=== PATIENT | female | born 1975 | race Native Hawaiian/Other Pacific Islander ===

== ENCOUNTER 2017-05-07 20:23 | Emergency (ER) | payer OTHER ==
[~2017-05-07] VITALS: Ht 170.2 cm; Wt 86.4 kg
[2017-05-07 20:34] VITALS: BP 161/104; PULSE 112; RESP 16; O2SAT 93
--- NOTE | 2017-05-07 20:51 | ED.REPORT ---
HPI-Head Prob / Injury Date of Service May 07, 2017 ED Provider: Dr. Grissom Pt is a healthy 41 year old female with a hx of DM who presents to the ED via EMS immediately following a head injury. She reports that she was sitting on the edge of a trailer when she fell off and hit her head on a wooden bench. She reports a headache and neck pain. She denies any blurred vision, loss of consciousness or vomiting. Nursing Notes Stated Complaint: GROUND LEVEL FALL Chief Complaint: Head, Face, Neck Trauma Nursing Notes Reviewed: Yes Allergies: Coded Allergies: morphine (Verified Allergy, Unknown, Rash,Itching,, 05/07/17) Scheduled Insulin Aspart (NovoLOG U100 Insulin Vial) 100 U/Ml U 1 UNIT SUBQ sliding scale Insulin Glargine (Lantus U100 Insulin Vial) 100 Unit/Ml Vial 50 UNIT SUBQ QAM Insulin Glargine (Lantus U100 Insulin Vial) 100 Unit/Ml Vial 60 UNIT SUBQ HS Lisinopril (Lisinopril) 20 Mg Tablet 20 MG PO DAILY General Time Seen by Provider: 20:55 Chief Complaint Blunt head trauma Hx Obtained From: Patient Arrived By: Ambulance Onset Occurred: Just prior to arrival Symptom Duration: Since onset Location: : Neck Quality: Painful Severity: Current: Moderate Severity: Maximum: Moderate Similar Sx Previous: Yes Past Medical History Past Medical History DM Review of Systems Constitutional: Denies: Chills, Fever, Malaise GI: Denies: Abdominal pain, Bloody/tarry stool, Diarrhea, Nausea, Vomiting Musculoskeletal: Reports: Back pain, Neck pain, Denies: Extremity pain Skin: Denies Diaphoresis, Denies Swelling Neurologic: Reports: Headache, Denies: Change LOC, Dizziness, Seizure, Syncope Complete sys rev & neg: except as marked. Physical Exam Initial Vital Signs Vital Signs (First) Date Time Temp Pulse Resp B/P Pulse Ox O2 Delivery O2 Flow Rate FiO2 05/07/17 20:34 36.6 112 16 161/104 93 Room Air Initial VS: Reviewed Respiratory: Breath sounds normal, Clear to auscultation, No respiratory distress Cardiovascular: Regular rate & rhythm, Heart sounds normal, Intact distal pulses Abdomen / GI: Soft, Non-tender, No guarding, No rebound, No distention Skin: Warm, Dry, No cyanosis General/Constitutional: Awake, Alert, Cooperative Appearance / Presentation: Positive: Uncomfortable Head / Eyes: Atraumatic, Normocephalic, PERRL ENT: Atraumatic, Airway patent, Mucous membranes moist, Pharynx NL Neck: Atraumatic, Supple Trauma - Neck Specific: Positive: Immobilized - C Collar Tender c-spine Tender l spine Neurologic: Oriented X3, Speech NL, No motor deficits, No sensory deficits, CN II - XII intact, Cerebellar NL Interpretation & Diagnostics Lab Results Interpretation Result Diagram: 05/07/17 2305 Test 05/07/17 23:05 Sodium Level 127mEq/L (134-144) Potassium Level 4.0mEq/L (3.5-5.2) Chloride Level 87mEq/L (97-108) Carbon Dioxide Level 21mmol/L (18-29) Blood Urea Nitrogen 24mg/dL (6-24) Creatinine 1.52mg/dL (0.57-1.00) Estimat Glomerular Filtration Rate 54mL/min (>59) Glucose Level 693mg/dL (60-99) Calcium Level 8.9mg/dL (8.5-10.1) Total Bilirubin 0.3mg/dL (0.0-1.2) Aspartate Amino Transf (AST/SGOT) 14U/L (0-50) Alanine Aminotransferase (ALT/SGPT) 15U/L (0-32) Alkaline Phosphatase 123U/L (25-150) Total Protein 7.3g/dL (6.4-8.4) Albumin 3.4g/dL (3.4-5.0) X-Ray Interpretation Xray Interpretation: IMPRESSION: No fractures. Mild degenerative disc disease. Dictated by: Samuel Boone M.D. on 05/07/2017 at 21:52 Study Performed: L spine Interpretation / Wet Read by: Interpret - Radiologist CT Head Interpretation IMPRESSION: No acute intracranial abnormality. No skull fracture. Dictated by: Samuel Boone M.D. on 05/07/2017 at 21:40 Interpretation / Wet Read by: Interpret - Radiologist CT C-Spine Interpretation IMPRESSION: No fracture or dislocation. Dictated by: Samuel Boone M.D. on 05/07/2017 at 21:42 Interpretation / Wet Read by: Interpret - Radiologist Re-Eval/Medical Decision Med Decision/Clinical Course Type I diabetic involved in traumatic injury. She is clear from a trauma standpoint. Blood sugar was 700 and she was given her evening dose of Lantus and a dose of Humalog. Blood sugar came down to about 350 and she felt well. She does not have a provider and she is out of insulin. I will prescribe her a month's worth of her Lantus as well as her NovoLog. Referred to primary care for close outpatient follow-up. At discharge is awake alert and oriented 4. Routine opiate and diabetic warnings were given. Source of Hx: Old records Counseled Regarding: Diagnosis, Lab results, Need for follow-up, When/why to return to ED Discharge & Departure Primary Impression: Neck strain Encounter type: initial encounter Qualified Code: S16.1XXA - Strain of muscle, fascia and tendon at neck level, initial encounter Additional Impressions: Head injury Encounter type: initial encounter Qualified Code: S09.90XA - Unspecified injury of head, initial encounter Hyperglycemia due to type 1 diabetes mellitus Disposition: Home All VS Reviewed: Yes Condition: Stable Patient Instructions: Acute Neck Pain (ED), Concussion (ED), Diabetic Hyperglycemia (ED) Additional Instructions: The CT scans were essentially normal. No signs of acute traumatic injury. Your blood sugar was nearly 700. This came down nicely with your evening dose of Lantus and a dose of iv insulin. Check your blood sugar every 4 hours. Follow your diabetic diet. Fill the prescriptions for Lantus and Novolog tomorrow. Following your sliding scale. Set up a follow-up with referral clinics. You should be seen this week. He may take 1-2 [place] every 6 hours as needed for severe pain. Do not drive or drink alcohol consumption acetaminophen tonight or whilel taking the [place]. Return if any problems or any new or worrisome symptoms. YOu should eat something tonight before bed. Check her blood sugar first thing in the morning. Referrals: Edi Araiza MD Attestation Portions of this note were transcribed by Ginger Calvillo. I, Dr. Grissom personally performed the history, physical exam and medical decision-making; I reviewed and confirmed the accuracy of the information in the transcribed note. Signed by: Vasiliy Ward, 05/07/2017 [id number] copies to: Edi Araiza MD, Todd P DO May 07, 2017 20:51 CARMEN CALVILLO May 07, 2017 20:56
[2017-05-07] MEDS: HYDROmorphone 0.5 mg/0.5 mL iSecure Syringe IVPUSH PRN ×2 (21:15→22:48)
--- NOTE | 2017-05-07 21:43 | DRSVH ---
PROCEDURE: CT BRAIN WITHOUT CONTRAST ([id number]) INDICATIONS: FALL, STRUCK BACK OF NECK TECHNIQUE: Noncontrast 4.5 mm thick angled axial sections acquired from the foramen magnum to the vertex, with c oronal reformats. COMPARISON: None. FINDINGS: Image quality: Excellent. CSF spaces: Basal cisterns are patent. No extra-axial fluid collections. Ventricles are normal in size and shape. Brain: No midline shift. No intracranial masses or hemorrhage. Campbell-white matter interface is norm al. Skull and face: Calvarium and visualized facial bones are intact, without suspicious lesions. Sinuses: Visualized sinuses and mastoids are clear. IMPRESSION: No acute intracranial abnormality. No skull fracture. Dictated by: Samuel Boone M.D. on 05/07/2017 at 21:40 Approved by: Samuel Boone M.D. on 05/07/2017 at 21:42
--- NOTE | 2017-05-07 21:46 | DRSVH ---
PROCEDURE: CT CERVICAL SPINE WITHOUT CONTRAST ([id number]) INDICATIONS: FALL, STRUCK BACK OF NECK TECHNIQUE: Noncontrast 3 mm thick sections acquired from the skull base to the T4 level. Sagittal and coronal r eformats were then constructed. For radiation dose reduction, the following was used: automated exp osure control, adjustment of mA and/or kV according to patient size. COMPARISON: [facility], CT, CT BRAIN WO CON, 05/07/2017, 20:44. FINDINGS: Image quality: Excellent. Bones: No fractures or dislocations. Visualized superior ribs are intact. Soft tissues: Prevertebral soft tissues are normal in thickness. No paravertebral hematomas. No ap ical pneumothoraces. Bilateral vertebral artery calcification consistent with atherosclerosis. IMPRESSION: No fracture or dislocation. Dictated by: Samuel Boone M.D. on 05/07/2017 at 21:42 Approved by: Samuel Boone M.D. on 05/07/2017 at 21:45
--- NOTE | 2017-05-07 21:55 | DRSVH ---
PROCEDURE: X-RAY LUMBAR SPINE, 2 OR 3 VIEW INDICATIONS: fall, back pain TECHNIQUE: 3 views of the lumbar spine were acquired. COMPARISON: None. FINDINGS: Bones: 5 [id number] vertebrae are present. There is normal bony alignment. No vertebral body c ompression fractures. No suspicious bony lesions. There is mild degenerative disc disease at L3-L4 and L4-L5 with mild loss of disc height and anterior spurring. Soft tissues: Overlying bowel gas pattern is normal. No suspicious soft tissue calcifications. IMPRESSION: No fractures. Mild degenerative disc disease. Dictated by: Samuel Boone M.D. on 05/07/2017 at 21:52 Approved by: Samuel Bonoe M.D. on 05/07/2017 at 21:54
[2017-05-07] MEDS ORDERED: INSU100V7 SUBQ ×2 (22:41→22:43)
[2017-05-07] MEDS ORDERED: INSU100C8 SUBQ (22:43)
[2017-05-07] MEDS ORDERED: LISI-567 PO (22:43)
[2017-05-07 22:47] VITALS: BP 134/90; PULSE 108; RESP 20; O2SAT 100
[2017-05-08] MEDS ORDERED: Insulin GLARgine 100 Unit/mL Syringe SUBQ ONE
[2017-05-08] MEDS ORDERED: Insulin Human REGular 300 Unit/3 mL Inj IV SCH
[2017-05-08] MEDS ORDERED: Insulin Human REGular-Omnicell 100 Unit/mL ONE (00:21)
[2017-05-08 01:54] VITALS: BP 106/69; PULSE 107; RESP 16; O2SAT 99
== END 2017-05-08 01:46 | disposition home or self-care (01) ==
LOC: EDBD 20:23 → SED 20:23
DX: S16.1XXA Strain of muscle, fascia and tendon at neck level, initial encounter (principal); S09.8XXA Other specified injuries of head, initial encounter; W01.198A Fall on same level from slipping, tripping and stumbling with subsequent striking against other object, initial encounter; Y93.89 Activity, other specified; Y92.009 Unspecified place in unspecified non-institutional (private) residence as the place of occurrence of the external cause; Y99.8 Other external cause status; E10.65 Type 1 diabetes mellitus with hyperglycemia; Z79.4 Long term (current) use of insulin; Z88.5 Allergy status to narcotic agent
CPT/HCPCS: 36415; 70450; 72100; 72125; 80053; 82948; 96372; 96374; 96375; 96376; 99285; J1170; J1815

== ENCOUNTER 2017-05-12 06:27 | Emergency (ER) | payer OTHER ==
[2017-05-12] VITALS (12 sets, daily range): BP systolic 117–184; BP diastolic 71–132; PULSE 101–120; RESP 14–22; O2SAT 96–100
[~2017-05-12] VITALS: Ht 170.2 cm; Wt 90.0 kg
[~2017-05-12 06:27] MED LIST: INSU100C8 SUBQ; INSU100V7 SUBQ; LISI-567 PO
[2017-05-12] MEDS ORDERED: 0.9% Sodium Chloride 1,000 ML IV ONE ×3 (06:42→10:14)
--- NOTE | 2017-05-12 06:44 | ED.REPORT ---
HPI-Abd Pain F 40 and Over Date of Service May 12, 2017 ED Provider: Felice Rahman DO Pt is a 41 year old female with a history of hypertension and DMII, who presents to the ED complaining of abdominal pain onset three days ago. Pt c/o associated nausea, vomiting, and decreased appetite, but denies diarrhea, hematochezia or hematemesis. The pt also reports that her blood sugar is elevated at approximately 700, but admits to not taking her medications this morning. History is initially difficult to obtain because patient is so uncomfortable and retching. Nursing Notes Stated Complaint: ABDOMINAL PAIN,VOMITING Chief Complaint: Female Abdominal Pain Nursing Notes Reviewed: Yes Allergies: Coded Allergies: morphine (Verified Allergy, Unknown, Rash,Itching,, 05/12/17) Scheduled Insulin Aspart (NovoLOG U100 Insulin Vial) 100 U/Ml U 1 UNIT SUBQ sliding scale Insulin Glargine (Lantus U100 Insulin Vial) 100 Unit/Ml Vial 50 UNIT SUBQ QAM Insulin Glargine (Lantus U100 Insulin Vial) 100 Unit/Ml Vial 60 UNIT SUBQ HS Lisinopril (Lisinopril) 20 Mg Tablet 20 MG PO DAILY General Time Seen by MD: 06:40 Chief Complaint Abdominal pain Hx Obtained From: Patient Arrived By: Walk-in Sudden in Onset?: No Onset Occurred: 3 days ago Symptom Duration: Since onset Progression since Onset: Gradually worsening Recent Healthcare: No recent hospitalization, Recent doctor visit Similar Sx Previous: No Risk Factors )( AAA Risk Stratification Hypertension Risk factors reviewed Past Medical History Past Medical History DM HTN Past Surgical History colonoscopy Smoking History Unknown if Ever Smoker Social History Alcohol Use: Denies alcohol use Other Social History: Good social support Ambulatory Status Independent Review of Systems decreased appetite Respiratory: Denies: Non-productive cough, Shortness of breath Cardiovascular: Denies: Chest pain GI: Reports: Abdominal pain, Nausea, Vomiting, Denies: Diarrhea, Hematemesis, Hematochezia Complete sys rev & neg: except as marked. Physical Exam Vital Signs Vital Signs (First) Date Time Temp Pulse Resp B/P Pulse Ox O2 Delivery O2 Flow Rate FiO2 05/12/17 06:30 36.2 120 16 117/79 100 Room Air Initial VS: Reviewed General/Constitutional: Awake, Alert Distress / Hydration: Positive: Distress moderate Respiratory / Chest: Atraumatic, Breath sounds NL, Breath sounds = bilat, No respiratory distress Cardiovascular: Regular rhythm, Heart sounds NL Heart Rate / Rhythm: Positive: Tachycardia Abdomen: Atraumatic, Soft Bowel Sounds / Distention: Positive: Bowel sounds hypoactive Diffuse abdominal tenderness Back: Atraumatic, Inspection NL, Full range of motion Head / Eyes: Atraumatic, Normocephalic, PERRL, EOMI ENT: Atraumatic, Airway patent, Mucous membranes moist Skin: Atraumatic, Color NL, No rash, Warm, Dry Neurologic: Oriented X3, Speech NL, No motor deficits, No sensory deficits Neck: Atraumatic, Supple, Full range of motion Upper Extremity / MS: Atraumatic, Inspection NL, Full range of motion Lower Extremity / Pelvis / MS: Atraumatic, Inspection NL, Full range of motion Interpretation & Diagnostics Interpretation & Diagnostics: Pelvis US: IMPRESSION: 1. Myomatous uterus with multiple fibroids. The largest fibroid is in the anterior wall at midline measuring 3.4 x 2.5 x 4.1 cm. Dictated by: Samuel Boone M.D. on 05/12/2017 at 14:19 Approved by: Samuel Boone M.D. on 05/12/2017 at 14:24 Abdomen US: IMPRESSION: 1. Cholelithiasis. There is gallbladder wall thickening, pericholecystic fluid collection and sonographic Livingston's sign. Ultrasound findings are consistent with acute cholecystitis. 2. Diffusely increased hepatic echotexture. This finding is most likely secondary to hepatic fatty infiltration although other hepatocellular disease may have a similar appearance. Recommend clinical correlation. Dictated by: Samuel Boone M.D. on 05/12/2017 at 14:15 Approved by: Samuel Boone M.D. on 05/12/2017 at 14:19 Lab Results Interpretation Result Diagram: 05/12/17 0710 05/12/17 1042 Test 05/12/17 07:10 05/12/17 09:02 05/12/17 10:42 White Blood Count 13.9th/mm3 (3.8-10.1) Red Blood Count 5.69mil/mm3 (3.90-5.20) Hemoglobin 16.4g/dL (12.0-15.6) Hematocrit 47.1% (35.0-46.0) Mean Corpuscular Volume 82.8fL (81-100) Mean Corpuscular Hemoglobin 28.8pg (27.0-35.0) Mean Corpuscular Hemoglobin Concent 34.8% (32.0-37.0) Red Cell Distribution Width 12.6% (12.3-15.4) Platelet Count 515bil/L (150-400) Neutrophils (%) (Auto) 74.1% (40-74) Lymphocytes (%) (Auto) 21.5% (14-46) Monocytes (%) (Auto) 3.6% (4-12) Eosinophils (%) (Auto) 0.2% (0-5) Basophils (%) (Auto) 0.3% (0-3) Osmolality 336 (275-300) Magnesium Level 1.9mg/dL (1.6-2.6) Lipase 27U/L (13-60) Hold Bowser Top Tube Received (Received) Ketones Small (Negative) Urine Color Straw (YELLOW) Urine Appearance Hazy (CLEAR,HAZY) Urine pH 7.0 (5.0-8.0) Urine Specific [place] 1.027 (1.003-1.035) Urine Protein 100mg/dL (NEG,TRACE) Urine Glucose (UA) 1000mg/dL (NEGATIVE) Urine Ketones 15mg/dL (NEGATIVE) Urine Occult Blood Trace (NEGATIVE) Urine Nitrite Positive (NEGATIVE) Urine Bilirubin Negative (NEGATIVE) Urine Urobilinogen Normalmg/dL (NORMAL) Urine Leukocyte Esterase Negative (NEGATIVE) Urine RBC 0-2/hpf (0-2) Urine WBC 0-5/hpf (0-5) Urine Epithelial Cells Few/hpf (NONE-MOD) Urine Crystals None seen (NONE SEEN) Urine Bacteria Many/hpf (NONE-FEW) Urine Hyaline Casts None/lpf (NONE) Urine Granular Casts None seen (NONE SEEN) Urine Waxy Casts None seen (NONE SEEN) Urine Red Blood Cell Casts None seen (NONE SEEN) Urine White Blood Cell Casts None seen (NONE SEEN) Urine Mucus None seen (None Seen) Urine Trichomonas None seen (NONE SEEN) Urine Yeast None (NONE SEEN) Urinalysis Comment None Urine Culture Reflexed Indicated Sodium Level 134mEq/L (134-144) Potassium Level 4.0mEq/L (3.5-5.2) Chloride Level 97mEq/L (97-108) Carbon Dioxide Level 22mmol/L (18-29) Blood Urea Nitrogen 23mg/dL (6-24) Creatinine 1.36mg/dL (0.57-1.00) Estimat Glomerular Filtration Rate 61mL/min (>59) Glucose Level 405mg/dL (60-99) Calcium Level 8.9mg/dL (8.5-10.1) Total Bilirubin 0.2mg/dL (0.0-1.2) Aspartate Amino Transf (AST/SGOT) 10U/L (0-50) Alanine Aminotransferase (ALT/SGPT) 10U/L (0-32) Alkaline Phosphatase 102U/L (25-150) Total Protein 5.8g/dL (6.4-8.4) Albumin 2.9g/dL (3.4-5.0) CT Abd / Pelvis Interpretation IMPRESSION: 1. Cholelithiasis. There is possible trace pericholecystic fluid. Recommend clinical correlation for acute cholecystitis. 2. Myomatous uterus with a heterogeneous enhancing mass measuring 6.6 x 6.8 cm, probably a large uterine fibroid. Pelvic ultrasound suggested for followup. Dictated by: Samuel Boone M.D. on 05/12/2017 at 10:45 Approved by: Samuel Boone M.D. on 05/12/2017 at 10:52 Study type: Abdominal CT IV contrast, Abdom CT oral contrast Interpretation / Wet Read by: Interpret - Radiologist Re-Eval/Medical Decision Med Decision/Clinical Course 41-year-old female with a history of type II diabetes presents with, nausea, vomiting, and abdominal pain, as well as hyperglycemia. She has not been taking her medications and has had difficulty keeping fluids down. She usually takes 50 units of Lantus in the morning and 60 units in the evening. Her CT shows gallstones and some slight pericholecystic fluid as well as a uterine mass , likely a fibroid. Further evaluation was performed with an ultrasound as patient's abdomen remained extremely tender in the right upper quadrant as well as in the suprapubic region with palpation even after pain medications and her labs/hydration status were improving. The abdominal ultrasound did demonstrate a large fibroid and cholelithiasis without cholecystitis, including no enlargement of the duct, no pericholecystic fluid or other abnormalities. I had a discussion with the patient that she may need to have her gallbladder out at some point in the future, on a more elective basis given nonemergent findings on imaging studies today, and improved pain after her lengthy stay in the ER. She was given 3 L of fluids, 60 units of Lantus insulin, and 10 units of Humalog and sugars came down nicely. She had evidence of nonketotic hyperosmolar hyperglycemia without diabetic ketoacidosis. Her ABG shows pH of 7.395/37/94.6/22.2 on FiO2 of 21. Initially had some hyperkalemia which resolved with fluids and insulin. Her creatinine decreased and her heart rate decreased with fluids indicating significant dehydration on arrival. Patient was feeling much better and was discharged home with instructions for close follow-up with PCP Source of Hx: Old records Re-Evaluation/Progress #1: Time of Eval: 08:31 Re-Evaluation/Progress Note: Pt rechecked. Pt is feeling improved. RLQ tenderness is diminished and pt appears more comfortable. Discussed all results with pt. All questions addressed. Re-Evaluation/Progress #2: Time of Eval: 11:25 Re-Evaluation/Progress Note: Rechecked pt. Pt is tender to the RUQ and suprapubic region. Discussed with pt plan for US. Pt understands and agrees with plan. All questions addressed. Re-Evaluation/Progress #3: Time of Eval: 13:53 Patient Status: Condition improved Re-Evaluation/Progress Note: Rechecked pt. Discussed US results. Informed pt of plan for discharge. Pt understands and agrees with plan. F/U instructions and RTER warnings given. All questions addressed. Counseled Regarding: Diagnosis, Lab results, Need for follow-up, When/why to return to ED Discharge & Departure Primary Impression: Nausea and vomiting Vomiting type: unspecified Vomiting Intractability: non-intractable Qualified Code: R11.2 - Nausea with vomiting, unspecified Additional Impressions: Abdominal pain Abdominal location: unspecified location Qualified Code: R10.9 - Unspecified abdominal pain Cholelithiasis Cholelithiasis location: gallbladder Cholecystitis presence: without cholecystitis Biliary obstruction: without biliary obstruction Qualified Code : K80.20 - Calculus of gallbladder without cholecystitis without obstruction Hyperglycemia Diabetic hyperosmolar non-ketotic state Uterine fibroid Uterine leiomyoma location: unspecified location Qualified Code: D25.9 - Leiomyoma of uterus, unspecified Tachycardia Hypertension Hypertension type: unspecified secondary hypertension Qualified Code: I15.9 - Secondary hypertension, unspecified Hyperkalemia Leukocytosis Leukocytosis type: unspecified Qualified Code: D72.829 - Elevated white blood cell count, unspecified Acute kidney injury Disposition: Home Discharge Condition All VS Reviewed: Yes Condition: Stable Patient Instructions: Acute Abdominal Pain (ED), Acute Nausea and Vomiting (ED) , Diabetic Hyperglycemia (ED), Gallstones (ED) Additional Instructions: Thank you for trusting us with your care today. Initially your blood sugar was very elevated and after giving you your home dose of insulin as well as 3 L of fluid your sugars improved. For your abdominal pain you received an abdominal CT scan that showed some gallbladder stones that were further evaluated on ultrasound. Stones do not appear to be causing a problem at this time, but you should have follow-up with your primary care physician next week to reevaluate this and recheck. You may benefit from a surgery consultation in the future if you continue to have abdominal pain. We also found uterine fibroids present, but these are not likely a culprit of pain. If they cause significant discomfort/pelvic fullness they can be treated and [facility] can be consulted as an outpatient. Your electrolytes improved after treatment here. I am glad that you are feeling better. I am discharging you with Zofran which you can take for nausea and vomiting as needed. Please continue to take your insulin to keep her blood sugars down. Return to the ER if you have any new or worsening symptoms. Referrals: [facility] Scribe Attestation Portions of this note were transcribed by Ade Flores and An Chirinos. I, Dr. Rahman personally performed the history, physical exam and medical decision -making; I reviewed and confirmed the accuracy of the information in the transcribed note. copies to: [facility] Felice Rahman DO May 12, 2017 06:44 Ade Flores May 12, 2017 06:51 AN CHIRINOS May 12, 2017 14:53
[2017-05-12] MEDS ORDERED: Ondansetron 2 mg/mL 2 mL Inj IVPUSH PRN (06:45)
[2017-05-12] MEDS: HYDROmorphone 0.5 mg/0.5 mL iSecure Syringe IVPUSH PRN ×4 (07:22→13:34)
[2017-05-12 07:36] LABS: BASOPHILS % (AUTO) 0.3 % (0-3); EOSINOPHILS % (AUTO) 0.2 % (0-5); MONOCYTES % (AUTO) 3.6 % (4-12); Mean Corpuscular Hemoglobin 28.8 pg (27.0-35.0); Mean Corpuscular Volume 82.8 fL (81-100); NEUTROPHILS % (AUTO) 74.1 % (40-74); Platelet Count 515 bil/L (150-400)
[2017-05-12 07:53] LABS: Magnesium 1.9 mg/dL (1.6-2.6)
[2017-05-12] MEDS ORDERED: Insulin GLARgine 100 Unit/mL Syringe SUBQ ONE (08:15)
[2017-05-12] MEDS ORDERED: Iohexol 300 mg/mL 30 mL Inj PO ONE (08:30)
[2017-05-12] MEDS ORDERED: Alum-Mag Hydrox-Simeth 30 mL Suspension PO ONE (08:40)
--- NOTE | 2017-05-12 09:36 | ABG ---
DateTimeAnalyzed 09:29:00 -_ pH ____7.395 - 7.350 7.450 pCO2 ___37.1__ -mmHg 35.0 45.0 pO2 ___94.6__ -mmHg 69.0 116 HCO3- ___22.2__ -mmol/L 22.0 26.0 ABE ___-1.7__ -mmol/L -2.0 2.0 tHb ___14.3__ -g/dL 12.0 18.0 O2Hb ___94.7__ -% COHb ____1.2__ -% 0.0 1.5 MetHb ____0.9__ -% 0.4 1.5 sO2 ___96.7__ -% FIO2 ___21.0__ -% Drawn By jj - Date/Time Notified____ 09:36:00 -_ Notified By jj - Notified Whom dr andelin - B 762 -mmHg tO2 ___19.1__ -Vol% Jason test _Positive -
[2017-05-12 10:04] LABS: APPEARANCE,URINE HAZY (CLEAR,HAZY); COLOR,URINE STRAW (YELLOW); OCCULT BLOOD,URINE TRACE (NEGATIVE); UROBILINOGEN,URINE NORMAL (NORMAL)
[2017-05-12] MEDS ORDERED: Insulin LISPRO 300 Unit/3 mL Inj SUBQ ONE (10:15)
--- NOTE | 2017-05-12 10:53 | DRSVH ---
PROCEDURE: CT ABDOMEN AND PELVIS WITH CONTRAST ([id number]) INDICATIONS: diffuse abdominal pain, leukocytosis TECHNIQUE: After the administration of oral and intravenous contrast, 5 mm thick sections acquired from the diap hragms to the symphysis. 5 mm thick coronal and sagittal reformats were performed. For radiation do se reduction, the following was used: automated exposure control, adjustment of mA and/or kV accordi ng to patient size. COMPARISON: None. FINDINGS: Image quality: Excellent. ABDOMEN: Lung bases: Lung bases are clear. Heart size is normal. Solid organs: There are gallstones. Possible trace pericholecystic fluid. Liver and spleen are efren l in size and enhancement. Biliary system is non-dilated. Pancreas enhances normally. No adrenal n odules. Kidneys are normal in size and enhancement, without hydronephrosis. Peritoneum and bowel: Stomach, small bowel, and colon loops are normal in caliber and wall thickness . Normal appendix. No free fluid or air. Nodes and vessels: No retroperitoneal or mesenteric adenopathy. Aorta and inferior vena cava are no rmal in caliber. Miscellaneous: No ventral hernias. PELVIS: Genitourinary: Bladder wall thickness is normal. Uterus is enlarged. A heterogeneously enhancing ma ss in uterus measures 6.6 x 6.8 cm, probably a large uterine leiomyoma. Miscellaneous: No inguinal hernias or adenopathy. Bones: No suspicious bony lesions. No vertebral body compression fractures. IMPRESSION: 1. Cholelithiasis. There is possible trace pericholecystic fluid. Recommend clinical correlation for acute cholecystitis. 2. Myomatous uterus with a heterogeneous enhancing mass measuring 6.6 x 6.8 cm, probably a large uter ine fibroid. Pelvic ultrasound suggested for followup. Dictated by: Samuel Boone M.D. on 05/12/2017 at 10:45 Approved by: Samuel Boone M.D. on 05/12/2017 at 10:52
--- NOTE | 2017-05-12 14:21 | DRSVH ---
PROCEDURE: US ABDOMEN INDICATIONS: RUQ pain, abnormal CT TECHNIQUE: Real-time scanning was performed of the abdominal and retroperitoneal organs, with image documentatio n. COMPARISON: [facility], CT, CT ABD PELVIS W CON, 05/12/2017, 10:07. FINDINGS: Liver length: 14.58 cm Gallbladder Wall Thickness: 3.90 mm CHD: 1.80 mm CBD: 3.80 mm Spleen length: 9.64 cm Right kidney length: 11.57 cm Left kidney length: 10.21 cm Aorta(Proximal): 1.43 cm Aorta(Mid): 1.26 cm Aorta(Distal): 1.0 cm RCIA: 1.2 cm LCIA: 0.9 cm Liver: Liver is normal in size and demonstrates diffuse increased echotexture. Gallbladder: There are gallstones. Otherwise thickened measuring 4.4 mm. There is trace amount of per icholecystic fluid. The sonographic Livingston's sign was positive Biliary ducts: Intrahepatic bile ducts are non-dilated. Extrahepatic bile duct caliber is normal. Normal is 6-7 mm or less in diameter, or 10 mm or less post-cholecystectomy. Pancreas: Visualized portions of the pancreas are sonographically normal. Spleen: Spleen is normal in size and homogeneous in echotexture. Kidneys: Kidneys are normal in size and echotexture. No hydronephrosis or nephrolithiasis. No christin d masses. Aorta: Visualized aorta is normal in caliber at less than 3 cm. Iliacs: Proximal common iliac arteries are normal in caliber at less than 2.5 cm. IVC: Intrahepatic inferior vena cava is patent. Miscellaneous: No free abdominal fluid. IMPRESSION: 1. Cholelithiasis. There is gallbladder wall thickening, pericholecystic fluid collection and sonogra phic Livingston's sign. Ultrasound findings are consistent with acute cholecystitis. 2. Diffusely increased hepatic echotexture. This finding is most likely secondary to hepatic fatty i nfiltration although other hepatocellular disease may have a similar appearance. Recommend clinical c orrelation. Dictated by: Samuel Boone M.D. on 05/12/2017 at 14:15 Approved by: Samuel Boone M.D. on 05/12/2017 at 14:19
--- NOTE | 2017-05-12 14:26 | DRSVH ---
PROCEDURE: US PELVIC SONOGRAM INDICATIONS: lower abdominal pain, 6cm uterine mass TECHNIQUE: Real-time scanning was performed of the pelvic organs, with image documentation. Additional endovagi nal scanning was necessary due to incomplete visualization of the adnexal and endometrial structures by transabdominal scanning. COMPARISON: [facility], CT, CT ABD PELVIS W CON, 05/12/2017, 10:07. FINDINGS: (orthogonal measurements) Uterus size: 11.77 cm, 7.98 cm, 9.30 cm Endometrium thickness: 4.20 mm Right ovary size: 2.76 cm Left ovary size: 3.95 cm Transabdominal scanning: Limited scanning through the kidneys shows no hydronephrosis. No pathologi c free abdominal or pelvic fluid. Endovaginal scanning: Uterus: Uterus is enlarged and demonstrates coarse echotexture with multiple uterine fibroids. The l argest subserosal fibroid is in the mid anterior wall measuring 3.4 x 2.5 x 4.1 cm. Endometrium is w ithin normal physiologic limits. Ovaries: Within normal physiologic limits. There is a 1.4 x 1.1 x 2.5 cm and located cyst in the lef t ovary. IMPRESSION: 1. Myomatous uterus with multiple fibroids. The largest fibroid is in the anterior wall at midline me asuring 3.4 x 2.5 x 4.1 cm. Dictated by: Samuel Boone M.D. on 05/12/2017 at 14:19 Approved by: Samuel Boone M.D. on 05/12/2017 at 14:24
== END 2017-05-12 14:36 | disposition home or self-care (01) ==
LOC: SED 06:27
DX: N17.9 Acute kidney failure, unspecified (principal); K80.20 Calculus of gallbladder without cholecystitis without obstruction; D25.9 Leiomyoma of uterus, unspecified; E11.65 Type 2 diabetes mellitus with hyperglycemia; R00.0 Tachycardia, unspecified; I15.9 Secondary hypertension, unspecified; D72.829 Elevated white blood cell count, unspecified; E87.5 Hyperkalemia; E11.00 Type 2 diabetes mellitus with hyperosmolarity without nonketotic hyperglycemic-hyperosmolar coma (NKHHC); Z79.4 Long term (current) use of insulin; Z88.5 Allergy status to narcotic agent
CPT/HCPCS: 36415; 36620; 74177; 76705; 76856; 80053; 81000; 81025; 82009; 82375; 82803; 82948; 83690; 83735; 83930; 85025; 87077; 87086; 87088; 87186; 96361; 96374; 96375; 99285; J1170; J1815; J2405; J7030; Q9967